=== PATIENT | female | born 1990 | race Two or more races ===

== ENCOUNTER 2020-11-28 12:46 | Emergency (ER) | payer OTHER ==
[~2020-11-28] VITALS: Ht 160 cm; Wt 68.0 kg
[2020-11-28] MEDS ORDERED: KETO10TA2 PO (18:47)
== END 2020-11-28 18:58 | disposition home or self-care (01) ==
LOC: ER 12:46
DX: K81.0 Acute cholecystitis (principal)

== ENCOUNTER 2022-11-04 16:47 | Emergency (ER) | payer OTHER ==
[~2022-11-04] VITALS: Ht 160 cm; Wt 68.0 kg
[~2022-11-04 16:47] MED LIST: KETO10TA2 PO
== END 2022-11-04 18:18 | disposition home or self-care (01) ==
LOC: ER 16:47
DX: S29.8XXA Other specified injuries of thorax, initial encounter (principal); V43.52XA Car driver injured in collision with other type car in traffic accident, initial encounter; Y93.89 Activity, other specified; Y92.413 State road as the place of occurrence of the external cause; M54.89 Other dorsalgia